=== PATIENT | male | born 1985 | race Caucasian/White ===

== ENCOUNTER 2016-09-12 19:09 | Emergency (ER) | payer OTHER ==
[2016-09-12 19:18] VITALS: BP 104/65; PULSE 98; TEMP 98.4; BMI 27.4
[2016-09-12] MEDS ORDERED: ONDANSETRON 4 MG/2 ML VIAL IVPB ONE (21:59)
--- NOTE | 2016-09-12 21:59 | PDOC ---
History of Present Illness - History of Present Illness Initial Comments: 09/12/16 23:28 Patient is a 31 year old male with no significant medical hx who is presenting to the ED with nausea, vomiting and diarrhea since today. The patient reports he is unable to keep anything down, including water, and has had seven episodes of vomiting today. The patient also endorses some cough and generalized joint pain. Patient notes both of his kids had vomiting and diarrhea last week. Denies any recent travel, abdominal pain, fevers, chills, chest pain, shortness of breath, or dysuria. Denies past abdominal surgeries. <Lorraine Flores - Last Filed: 09/12/16 23:28> <Yazmin Blanc - Last Filed: 09/13/16 01:11> - General Chief Complaint: Nausea/Vomiting Stated Complaint: VOMITING, DIZZINESS Time Seen by Provider: 09/12/16 21:22 Past History <Lorraine Flores - Last Filed: 09/12/16 23:28> - Past Medical History Kidney Stones: Yes - Immunization History Immunization Up to Date: Yes - Psycho/Social/Smoking Cessation Hx Anxiety: No Suicidal Ideation: No Smoking Status: No Smoking History: Never smoked Have you smoked in the past 12 months: No Number of Cigarettes Smoked Daily: 4 If you are a former smoker, when did you quit?: 2014 Information on smoking cessation initiated: No Hx Alcohol Use: No Drug/Substance Use Hx: No Substance Use Type: None <Yazmin Blanc - Last Filed: 09/13/16 01:11> - Past Medical History Allergies/Adverse Reactions: Allergies Allergy/AdvReac Type Severity Reaction Status Date / Time No Known Allergies Allergy Verified 09/12/16 19:18 Home Medications: Ambulatory Orders NK [No Known Home Medication] 09/12/16 Review of Systems - Review of Systems Comments:: 09/12/16 23:28 CONSTITUTIONAL: Absent: fever, chills, diaphoresis, generalized weakness, malaise, loss of appetite HEENT: Absent: rhinorrhea, nasal congestion, throat pain, throat swelling, difficulty swallowing, mouth swelling, ear pain, eye pain, visual changes CARDIOVASCULAR: Absent: chest pain, syncope, palpitations, irregular heart rate, lightheadedness , peripheral edema RESPIRATORY: Present: cough Absent: shortness of breath, dyspnea with exertion, orthopnea, wheezing, stridor , hemoptysis GASTROINTESTINAL: Present: nausea, vomiting, diarrhea Absent: abdominal pain, abdominal distension, constipation, melena, hematochezia GENITOURINARY: Absent: dysuria, frequency, urgency, hesitancy, hematuria, flank pain, genital pain MUSCULOSKELETAL: Present: arthralgia Absent: myalgia, joint swelling SKIN: Absent: rash, itching, pallor HEMATOLOGIC/IMMUNOLOGIC: Absent: easy bleeding, easy bruising, lymphadenopathy, frequent infections ENDOCRINE: Absent: unexplained weight gain, unexplained weight loss, heat intolerance, cold intolerance NEUROLOGIC: Absent: headache, focal weakness or paresthesia, dizziness, unsteady gait, seizure, mental status changes, bladder or bowel incontinence. PSYCHIATRIC: Absent: anxiety, depression, suicidal or homicidal ideation, hallucinations <Lorraine Flores - Last Filed: 09/12/16 23:28> *Physical Exam - Vital Signs Last Vital Signs Temp Pulse Resp BP Pulse Ox 98.4 F 98 H 18 104/65 98 09/12/16 19:15 09/12/16 19:15 09/12/16 19:15 09/12/16 19:15 09/12/16 19:15 - Physical Exam Comments: 09/12/16 23:29 GENERAL: Well developed, well nourished. Awake and alert. No acute distress. HEENT: Normocephalic, atraumatic. PERRLA, EOMI. No conjunctival pallor. Sclera are non- icteric. Dry mucous membranes. Oropharynx is clear. NECK: Supple. Full ROM. No JVD. Carotid pulses 2+ and symmetric, without bruits. No thyromegaly. No lymphadenopathy. CARDIOVASCULAR: Regular rate and rhythm. No murmurs, rubs, or gallops. Distal pulses are 2+ and symmetric. PULMONARY: No evidence of respiratory distress. Lungs clear to auscultation bilaterally. No wheezing, rales or rhonchi. ABDOMINAL: Soft. Non-tender. Non-distended. No rebound or guarding. No organomegaly. Normoactive bowel sounds. MUSCULOSKELETAL: Normal range of motion at all joints. No bony deformities or tenderness. No CVA tenderness. EXTREMITIES: No cyanosis. No clubbing. No edema. No calf tenderness. SKIN: Warm and dry. Normal capillary refill. No rashes. No jaundice. NEUROLOGICAL: Alert, awake, appropriate. Cranial nerves 2-12 intact. Normal speech. PSYCHIATRIC: Cooperative. Good eye contact. Appropriate mood and affect. <Lorraine Flores - Last Filed: 09/12/16 23:28> - Vital Signs Last Vital Signs Temp Pulse Resp BP Pulse Ox 98.4 F 98 H 18 104/65 98 09/12/16 19:15 09/12/16 19:15 09/12/16 19:15 09/12/16 19:15 09/12/16 19:15 <Yazmin Blanc - Last Filed: 09/13/16 01:11> ED Treatment Course - LABORATORY CBC & Chemistry Diagram: 09/12/16 22:30 09/12/16 22:30 - ADDITIONAL ORDERS Additional order review: 09/12/16 22:30 RBC 5.19 MCV 84.9 MCHC 33.1 RDW 14.2 MPV 8.8 Neutrophils % 91.6 H D Lymphocytes % 4.0 L D Monocytes % 4.0 Eosinophils % 0.1 D Basophils % 0.3 - Medications Given in the ED: ED Medications Discontinued Medications Generic Name Dose Route Start Last Admin Trade Name Freq PRN Reason Stop Dose Admin Sodium Chloride 1,000 mls @ 1,000 mls/hr 09/12/16 22:14 09/12/16 22:30 Normal Saline - IV 09/12/16 23:13 1,000 mls/hr ASDIR STA Administration Ondansetron HCl 4 mg 09/12/16 21:59 09/12/16 22:30 Zofran Injection IVPB 09/12/16 22:00 4 mg ONCE ONE Administration <Lorraine Flores - Last Filed: 09/12/16 23:28> - LABORATORY CBC & Chemistry Diagram: 09/12/16 22:30 09/12/16 22:30 <Yazmin Blanc - Last Filed: 09/13/16 01:11> Medical Decision Making - Medical Decision Making 09/13/16 01:06 31-year-old male presents with 1 day of nausea, vomiting and diarrhea this started when he woke up Sunday morning. He did have 2 sick contacts his children had similar symptoms last week. He denies any recent travel. He said he is vomited at least 7 times and can't seem to keep water down. The last time he had diarrhea was about 6 PM. No fever, no shortness of breath or chest pain. He did complain of some generalized headache and joint pain -he received IV fluids, antiemetics and feels much better. He does not have lower abdominal pain. He has no rebound or guarding on exam Discussed with him that if he does develop any right lower abdominal pain, he should return for imaging studies. It is expected that he feels better in 24 hours. He is to return for any worsening symptoms <Yazmin Blanc - Last Filed: 09/13/16 01:11> *DC/Admit/Observation/Transfer - Attestations Scribe Attestion: 09/12/16 23:30 Documentation prepared by Lorraine Flores, acting as medical massage therapist for Yazmin Blanc MD. <Lorraine Flores - Last Filed: 09/12/16 23:28> <Yazmin Blanc - Last Filed: 09/13/16 01:11> Diagnosis at time of Disposition: Vomiting Qualifiers: Vomiting type: unspecified Vomiting Intractability: non-intractable Nausea presence: with nausea Qualified Code(s): R11.2 - Nausea with vomiting, unspecified Diarrhea Qualifiers: Diarrhea type: unspecified type Qualified Code(s): R19.7 - Diarrhea, unspecified - Discharge Dispostion Disposition: HOME Condition at time of disposition: Stable - Referrals Referrals: STAFF,NOT ON [Primary Care Provider] - - Patient Instructions Printed Discharge Instructions: DI for Diarrhea and Traveler's Diarrhea -- Adult, DI for Vomiting -- Adult Additional Instructions: -Please rest -try to keep hydrated by drinking fluids -return if you develop abdominal pain
[2016-09-12] MEDS ORDERED: SODIUM CHLORIDE 1,000 ML IV STA (22:14)
[2016-09-12] MEDS ORDERED: ONDANSETRON 4 MG/2 ML VIAL ONE (22:20)
[2016-09-12 22:39] LABS: BASOPHIL 0.3 % (0-2.0); EOSINOPHIL 0.1 % (0-4.5); MCH 28.1 pg (25.7-33.7); MCHC 33.1 g/dl (32.0-35.9); MEAN CELL VOLUME 84.9 fl (80-96); MEAN PLT VOLUME 8.8 fl (7.5-11.1); NEUTROPHILS 91.6 % (42.8-82.8); PLATELET COUNT 216 K/MM3 (134-434); RDW 14.2 % (11.9-15.9); WHITE BLOOD COUNT 14.7 K/mm3 (4.0-10.0)
[2016-09-12 23:28] LABS: ALBUMIN 4.3 g/dl (3.4-5.0); ALK PHOS 94 U/L (45-117); ANION GAP 15 (8-16); BILIRUBIN,TOTAL 0.4 mg/dL (0.2-1.0); CALCIUM 9.4 mg/dL (8.5-10.1); CO2 23 mmol/L (21-32); COCKROFT - GAULT 114.44; CREATININE 0.9 mg/dL (0.7-1.3); GLUCOSE,RANDOM 82 mg/dL (74-106); SGOT/AST 21 U/L (15-37); SGPT/ALT 22 U/L (12-78); TOT PROT 7.8 g/dl (6.4-8.2)
[2016-09-12] MEDS ORDERED: METOCLOPRAMIDE HCL INJECTION 10 MG/2 ML VIAL IVPB ONE (23:29)
[2016-09-12] MEDS ORDERED: METOCLOPRAMIDE HCL INJECTION 10 MG/2 ML VIAL ONE (23:32)
[2016-09-13 00:55] LABS: URINE APPEARANCE CLEAR; URINE BILIRUBIN NEGATIVE (NEGATIVE); URINE BLOOD 1+ (NEGATIVE); URINE COLOR YELLOW; URINE GLUCOSE (UA) NEGATIVE (NEGATIVE); URINE KETONE 1+ (NEGATIVE); URINE LEUK ESTERASE NEGATIVE (NEGATIVE); URINE NITRITE NEGATIVE (NEGATIVE); URINE PROTEIN NEGATIVE (NEGATIVE); URINE UROBILINOGEN NEGATIVE E.U./dl (0.2-1.0)
[2016-09-13 01:40] LABS: URINE HYALINE CAST 2 /lpf; URINE MUCUS MANY; URINE RBC 9 /hpf (0-3); URINE WBC 4 /hpf (3-5)
== END 2016-09-13 01:20 | disposition home or self-care (01) ==
LOC: JER 19:09
PROC: 3E033GC Introduction of Other Therapeutic Substance into Peripheral Vein, Percutaneous Approach (ICD-10-PCS; principal; 2016-09-12)
PROC: 3E0337Z Introduction of Electrolytic and Water Balance Substance into Peripheral Vein, Percutaneous Approach (ICD-10-PCS; 2016-09-12)
DX: R11.2 Nausea with vomiting, unspecified (principal); R19.7 Diarrhea, unspecified; Z87.442 Personal history of urinary calculi
CPT/HCPCS: 36415; 80053; 81003; 81015; 83690; 85025; 96361; 96374; 96375; 99282-25

== ENCOUNTER 2017-05-01 15:48 | Emergency (ER) | payer OTHER ==
--- NOTE | 2017-05-01 16:00 | PDOC ---
Rapid Medical Evaluation Time Seen by Provider: 05/01/17 15:58 Medical Evaluation: Allergies Allergy/AdvReac Type Severity Reaction Status Date / Time No Known Allergies Allergy Verified 05/01/17 15:58 05/01/17 15:58 I have performed a brief in-person evaluation of this patient. The patient presents with a chief complaint of: N/V/D w/ mild epigastric pain. Denies pmhx Pertinent physical exam findings:Stable w/ minimal ttp to epigastrium I have ordered the following:cbc/chem/lipase The patient will proceed to the ED for further evaluation.
[2017-05-01 16:01] VITALS: BP 108/66; PULSE 91; TEMP 98.7; BMI 22.8
[2017-05-01 16:19] LABS: BASO % 0.7 % (0-2.0); EOS % 3.3 % (0-4.5); HEMATOCRIT 44.3 % (35.4-49); HEMOGLOBIN 15.2 GM/dL (11.7-16.9); LYMPH % 16.8 % (8-40); MCH 29.6 pg (25.7-33.7); MCHC 34.3 g/dl (32.0-35.9); MEAN CELL VOLUME 86.3 fl (80-96); MEAN PLT VOLUME 8.7 fl (7.5-11.1); NEUT % 72.2 % (42.8-82.8); PLATELET COUNT 190 K/MM3 (134-434); RBC 5.13 M/mm3 (4.00-5.60); RDW 13.1 % (11.9-15.9)
[2017-05-01 16:45] LABS: ALBUMIN 4.3 g/dl (3.4-5.0); ALK PHOS 81 U/L (45-117); ANION GAP 7 (8-16); BILIRUBIN,TOTAL 0.5 mg/dL (0.2-1.0); BLOOD UREA NITROGEN 10 mg/dL (7-18); CALCIUM 9.1 mg/dL (8.5-10.1); CHLORIDE 102 mmol/L (98-107); CO2 29 mmol/L (21-32); CREATININE 0.8 mg/dL (0.7-1.3); GLUCOSE,RANDOM 102 mg/dL (74-106); LIPASE 124 U/L (73-393); POTASSIUM 3.5 mmol/L (3.5-5.1); SGOT/AST 20 U/L (15-37); SGPT/ALT 25 U/L (12-78); SODIUM 138 mmol/L (136-145); TOT PROT 7.7 g/dl (6.4-8.2)
--- NOTE | 2017-05-01 17:19 | PDOC ---
History of Present Illness - General Chief Complaint: Vomiting/Diarrhea Stated Complaint: VOMITING/DIARRHEA Time Seen by Provider: 05/01/17 15:58 History Source: Patient Exam Limitations: No Limitations - History of Present Illness Travel History: No Initial Comments: 05/01/17 17:14 This is a 32-year-old man without significant past medical history of presents emergency Department 4 days of diarrhea. Patient states he is able tolerate liquids but becomes nauseous and vomits when he tries solid foods. He reports having pain in the epigastrium which worsens when he eats. He states his diarrhea is loose/watery and has a green/brown color to it. He denies fevers, chills, chest pain, shortness of breath, diaphoresis. Past History - Past Medical History Allergies/Adverse Reactions: Allergies Allergy/AdvReac Type Severity Reaction Status Date / Time No Known Allergies Allergy Verified 05/01/17 15:58 Home Medications: Ambulatory Orders Ondansetron [Zofran Odt -] 4 mg SL BID #14 od.tablet 05/01/17 COPD: No Kidney Stones: Yes Other medical history: cluster headache - Immunization History Immunization Up to Date: Yes - Suicide/Smoking/Psychosocial Hx Smoking Status: No Smoking History: Never smoked Have you smoked in the past 12 months: No Number of Cigarettes Smoked Daily: 4 If you are a former smoker, when did you quit?: 2014 Information on smoking cessation initiated: No Hx Alcohol Use: No Drug/Substance Use Hx: No Substance Use Type: None Review of Systems - Review of Systems Able to Perform ROS?: Yes Is the patient limited Turkmen proficient: No Constitutional: No: Symptoms Reported HEENTM: No: Symptoms Reported Cardiac (ROS): No: Symptoms Reported ABD/GI: Yes: See HPI : No: Symptoms Reported Musculoskeletal: No: Symptoms Reported Integumentary: No: Symptoms Reported Neurological: No: Symptoms reported Endocrine: No: Symptoms Reported Hematologic/Lymphatic: No: Symptoms Reported *Physical Exam - Vital Signs Last Vital Signs Temp Pulse Resp BP Pulse Ox 98.7 F 91 H 18 108/66 100 05/01/17 15:59 05/01/17 15:59 05/01/17 15:59 05/01/17 15:59 05/01/17 15:59 - Physical Exam General Appearance: Yes: Appropriately Dressed. No: Apparent Distress HEENT: positive: Normal ENT Inspection Neck: positive: Trachea midline, Supple Respiratory/Chest: positive: Lungs Clear, Normal Breath Sounds. negative: Respiratory Distress, Accessory Muscle Use Cardiovascular: positive: Regular Rhythm, Regular Rate Gastrointestinal/Abdominal: positive: Normal Bowel Sounds, Soft. negative: Tender Musculoskeletal: positive: Normal Inspection. negative: CVA Tenderness Extremity: positive: Normal Inspection Neurologic: positive: singing teacher II-XII NML intact, Fully Oriented, Alert, Normal Mood/ Affect, Normal Response, Motor Strength 09/01 ED Treatment Course - LABORATORY CBC & Chemistry Diagram: 05/01/17 16:06 05/01/17 16:06 - ADDITIONAL ORDERS Additional order review: Laboratory Results 05/01/17 16:06 Sodium 138 Potassium 3.5 Chloride 102 Carbon Dioxide 29 D Anion Gap 7 L BUN 10 Creatinine 0.8 Creat Clearance w eGFR > 60 Random Glucose 102 D Calcium 9.1 Total Bilirubin 0.5 D AST 20 ALT 25 Alkaline Phosphatase 81 Total Protein 7.7 Albumin 4.3 Lipase 124 05/01/17 16:06 RBC 5.13 MCV 86.3 MCHC 34.3 RDW 13.1 MPV 8.7 Neutrophils % 72.2 D Lymphocytes % 16.8 D Monocytes % 7.0 Eosinophils % 3.3 D Basophils % 0.7 Medical Decision Making - Medical Decision Making 05/01/17 17:15 A/P: This is a 32-year-old man without significant past medical history of presents emergency Department 4 days of diarrhea. Patient states he is able tolerate liquids but becomes nauseous and vomits when he tries solid foods. He reports having pain in the epigastrium which worsens when he eats. He states his diarrhea is loose/watery and has a green/brown color to it. He denies fevers, chills, chest pain, shortness of breath, diaphoresis. Abdomen is soft nontender nondistended. Normoactive bowel sounds. Lungs clear to auscultation bilaterally. S1 and S2 present. RRR. No murmur rub or gallop. Laboratory testing done at [facility] is benign. Patient is tolerating by mouth's at this time. Diagnosis: Viral gastroenteritis I will give the patient a prescription for Zofran ODT to help tolerate by mouth' s during the next couple days. Patient has no primary doctor so referral will be given. Patient is in agreement with plan strict return precautions were given. *DC/Admit/Observation/Transfer Diagnosis at time of Disposition: Gastroenteritis - Discharge Dispostion Disposition: HOME Condition at time of disposition: Stable Admit: No - Prescriptions Prescriptions: Ondansetron [Zofran Odt -] 4 mg SL BID #14 od.tablet - Referrals Referrals: David Frazier MD [Staff Physician] - - Patient Instructions Additional Instructions: Take Zofran as prescribed. This may help with her vomiting. Keep well-hydrated. Take Tylenol or Motrin for fever and/or pain. You've been given a referral for a primary doctor please make an appointment in 2 weeks for a complete checkup. Return to emergency department for inability to eat or drink anything, worsening diarrhea, dizziness, lightheadedness, chest pain, shortness of breath or any other concerns. Thank you very much for choosing us to provide your emergent healthcare needs. - Post Discharge Activity
== END 2017-05-01 17:25 | disposition home or self-care (01) ==
LOC: JERFT 15:48
DX: K52.9 Noninfective gastroenteritis and colitis, unspecified (principal)
CPT/HCPCS: 36415; 80053; 83690; 85025; 99281-25

== ENCOUNTER 2017-08-30 17:32 | Observation (INO) | payer OTHER ==
[2017-08-30 17:43] VITALS: BMI 21.0
[2017-08-30] MEDS ORDERED: ASPIRIN 81 MG CHEWABLE TABLETS PO ONE (17:46)
--- NOTE | 2017-08-30 17:46 | PDOC ---
Rapid Medical Evaluation Chief Complaint: Palpitations Time Seen by Provider: 08/30/17 17:46 Medical Evaluation: Allergies Allergy/AdvReac Type Severity Reaction Status Date / Time No Known Allergies Allergy Verified 08/30/17 17:39 Vital Signs Temp Pulse Resp BP Pulse Ox 98.1 F 150 H 18 111/78 100 08/30/17 17:41 08/30/17 17:41 08/30/17 17:41 08/30/17 17:41 08/30/17 17:41 08/30/17 17:46 08/30/17 17:40 Pt c/o: papitations since 1230pm. root canal under local anesthesia, no chest pain Pt on brief exam: tachy 150, bp wnl Pt ordered for: cardiac w/u Pt to proceed to the ED Discharge Disposition - Diagnosis Palpitations - Referrals - Patient Instructions - Post Discharge Activity
[2017-08-30] MEDS ORDERED: SODIUM CHLORIDE 1,000 ML IV STA (17:47)
--- NOTE | 2017-08-30 17:59 | PDOC ---
History of Present Illness - General Chief Complaint: Palpitations Stated Complaint: BLOOD PRESSURE PROBLEM Time Seen by Provider: 08/30/17 17:46 - History of Present Illness Initial Comments: 08/30/17 17:57 32 year old male with a PMH of cluster headache presents to the ED c/o palpitations. Patient states he was at the dentist earlier today around 12 p.m. when he started feeling acute onset of palpitations because he was nervous for his upcoming root canal. Note palpitations continued during root canal ( local anesthesia, unsure of medication) and prompted his visit to the ED. Denies associated chest pain, subjective dyspena, lightheadedness. No previous h/o palpitations. No family cardiac history including h/o early cardiac . Denies any prior stress testing. NKDA Surgical: Lithotripsy. Social: nicotine (3-4 cigarettes daily > 2 years), denies alcohol, denies recreational drugs PMD: Dr. Tasha Javier ([place]) As per EMR patient evaluated on multiple occasions in our ED over the last 3 years, no cardiac evaluation; most recent eval in 04/2017 at which time patient was diagnosed with viral gastroenteritis. Past History - Past Medical History Allergies/Adverse Reactions: Allergies Allergy/AdvReac Type Severity Reaction Status Date / Time No Known Allergies Allergy Verified 08/30/17 17:39 Home Medications: Ambulatory Orders Ondansetron [Zofran Odt -] 4 mg SL BID #14 od.tablet 05/01/17 COPD: No Kidney Stones: Yes - Immunization History Immunization Up to Date: Yes - Suicide/Smoking/Psychosocial Hx Smoking Status: No Smoking History: Never smoked Have you smoked in the past 12 months: No Number of Cigarettes Smoked Daily: 4 If you are a former smoker, when did you quit?: 2014 Information on smoking cessation initiated: No Hx Alcohol Use: No Drug/Substance Use Hx: No Substance Use Type: None Review of Systems - Review of Systems Constitutional: No: Chills, Fever HEENTM: No: Recent change in vision Respiratory: No: SOB with Exertion, SOB at Rest, Stridor, Wheezing Cardiac (ROS): Yes: Palpitations. No: Chest Pain, Edema, Lightheadedness, Syncope ABD/GI: No: Constipated, Diarrhea, Nausea, Vomiting : No: Burning, Dysuria Neurological: No: Numbness, Seizure, Tingling, Tremors Psychiatric: No: Anxiety, Depression All Other Systems: Reviewed and Negative *Physical Exam - Vital Signs Last Vital Signs Temp Pulse Resp BP Pulse Ox 98.1 F 150 H 18 111/78 100 08/30/17 17:41 08/30/17 17:41 08/30/17 17:41 08/30/17 17:41 08/30/17 17:41 - Physical Exam Comments: 08/30/17 19:20 HEAD: No signs of trauma EYES: PERRLA, EOMI, sclera anicteric, conjunctiva clear ENT: Auricles normal inspection, hearing grossly normal, nares patent, oropharynx clear without exudates. Moist mucosa NECK: Nontender, no stepoffs, Normal ROM, supple, no lymphadenopathy, JVD, or masses LUNGS: Breath sounds equal, clear to auscultation bilaterally. No wheezes, and no crackles HEART: Regular rate and rhythm, normal S1 and S2, no murmurs, rubs or gallops ABDOMEN: Soft, nontender, normoactive bowel sounds. No guarding, no rebound. No masses EXTREMITIES: Normal range of motion, no edema. No clubbing or cyanosis. No cords, erythema, or tenderness NEUROLOGICAL: Cranial nerves II through XII intact. 5/5 strength and sensation in all extremities, Normal speech, normal gait, normal cerebellar function SKIN: Warm, Dry, normal turgor, no rashes or lesions noted. ED Treatment Course - LABORATORY CBC & Chemistry Diagram: 08/30/17 17:50 08/30/17 17:50 Medical Decision Making - Medical Decision Making 08/30/17 18:01 32 year old male presents with acute onset of palpitations, started 5 hours prior to presentation. No associated chest pain, dyspnea. ECG in triage showed changes concerning possible for SVT (HR 138) vs. 2:1 Aflutter with buried P wave however repeat ECG showed NSR HR 93, normal intervals, no deviations, no MANDO/STD,TWI, good R wave progression V1- 4, c/w previous ECG dated 01/09/2012. Will obtain Troponin x1, CXR, likely disposition is admit for further cardiac evaluation including TAMMY. Reassess. 08/30/17 18:50 Troponin (-) x1, D-Dimer (-). Wet read of CXR shows no cardiomegaly, no effusion, no infiltrate/consolidation. Patient remains non-tachycardic however as initial ECG could be AFlutter vs SVT; paged [facility] for admission 08/30/17 19:01 Patient signed out to Dr. Boyd (Attending) - pending admission. Will continue to monitor while in ED. *DC/Admit/Observation/Transfer Diagnosis at time of Disposition: Palpitations - Referrals - Patient Instructions - Post Discharge Activity
[2017-08-30 18:10] LABS: BASO % 0.4 % (0-2.0); EOS % 2.3 % (0-4.5); HEMATOCRIT 43.9 % (35.4-49); LYMPH % 18.7 % (8-40); MCH 29.8 pg (25.7-33.7); MCHC 34.2 g/dl (32.0-35.9); MEAN CELL VOLUME 86.9 fl (80-96); MEAN PLT VOLUME 8.6 fl (7.5-11.1); MONO % 7.3 % (3.8-10.2); NEUT % 71.3 % (42.8-82.8); PLATELET COUNT 243 K/MM3 (134-434); RBC 5.05 M/mm3 (4.00-5.60); RDW 13.6 % (11.9-15.9); WHITE BLOOD COUNT 9.5 K/mm3 (4.0-10.0)
--- NOTE | 2017-08-30 18:16 | PDOC ---
Attending Attestation - HPI HPI: 08/30/17 18:45 The patient is a 32 year old male, with a significant past medical history of headaches, who presents to the emergency department complaining of palpitations onset today. He reports that he was at the dentist office getting a procedure done at 12:30pm today and received numbing medication. The palpitations began shortly after. He reports that he has had palpitations in the past when gets nervous but has not lasted more than a few minutes, unlike this episode which lasted roughly 4 hours. On presentation the patient's heart rate is normal. The patient denies chest pain, shortness of breath, headache or dizziness. Denies fever, chills, nausea, vomiting, diarrhea and constipation. Denies dysuria, frequency, urgency and hematuria. Allergies: None Past surgical history: None repoorted Social History: Quit tobacco use (2 weeks ago). No alcohol or drug use reported - Physicial Exam PE: 08/30/17 18:45 Constitutional: Awake, alert, oriented. No acute distress. Head: Normocephalic. Atraumatic Eyes: PERRL. EOMI. Conjunctivae are not pale. ENT: Mucous membranes are moist and intact. Posterior pharynx without exudates or erythema. Uvula midline. Neck: Supple. Full ROM. No lymphadenopathy. Cardiovascular: Regular rate. Regular rhythm. S1, S2 regular. Distal pulses are 2+ and symmetric. Pulmonary/Chest: No evidence of respiratory distress. Clear to auscultation bilaterally No wheezing, rales or rhonchi. Abdominal: Soft and non-distended. There is no tenderness. No rebound, guarding or rigidity. No organomegaly. No palpable masses. Good bowel sounds. Back: No CVA tenderness. Musculoskeletal: No edema. No cyanosis. No clubbing. Full range of motion in all extremities. Nocalf tenderness. Radial/pedal pulses are intact and 2+ bilaterally Skin: Skin is warm and dry. No petechiae. No purpura. Neurological: Alert and oriented to person, place, and time. Cranial nerves II -XII are grossly intact. Normal speech. Strength is grossly symmetric. No sensory deficits. Psychiatric: Good eye contact. Normal interaction, affect and behavior. <Barry Montiel - Last Filed: 08/30/17 18:45> - Resident Resident Name: Martha Mendiola - ED Attending Attestation I have performed the following: I have examined & evaluated the patient, The case was reviewed & discussed with the resident, I agree w/resident's findings & plan, Exceptions are as noted - Medical Decision Making 08/30/17 18:16 I, Dr. Cindy Boyd, DO, attest that this document has been prepared under my direction and personally reviewed by me in its entirety. I further attest, that it accurately reflects all work, treatment, procedures and medical decision -making performed by me. 08/30/17 20:13 a/p: 32yo male with palpitations today -no cp/sob -no pleuritic component -no PE risk factors -no recent drug use or etoh use -palpitations started before seeing the dentist -currently asymptomatic and in sinus rhythm -will obtain labs, dimer, trop, tsh, ekg, cxr -will monitor on tele -concern for poss 2:1 flutter on ekg -received asa 08/30/17 20:14 case discussed with NUSRAT who accepts pt to service consult placed to cards <Cindy Boyd - Last Filed: 08/30/17 20:14> Heart Score/ECG Review - ECG Intrepretation Comment:: 08/30/17 19:58 ekg rhythm strip in triage shows poss svt vs afib/flutter with rvr at 140s repeat ekg shows svt at 138, no acute st/t wave findings repeat ekg sinus at 86, nl axis, nl interval, no acute st/t wave findings <Cindy Boyd - Last Filed: 08/30/17 20:14>
[2017-08-30] MEDS ORDERED: ASPIRIN 81 MG CHEWABLE TABLETS ONE (18:31)
[2017-08-30 18:36] LABS: INR 0.98 (0.82-1.09)
[2017-08-30 18:37] LABS: ALBUMIN 4.5 g/dl (3.4-5.0); ANION GAP 6 (8-16); BILIRUBIN,TOTAL 0.3 mg/dL (0.2-1.0); BLOOD UREA NITROGEN 10 mg/dL (7-18); CALCIUM 9.5 mg/dL (8.5-10.1); CHLORIDE 109 mmol/L (98-107); CO2 28 mmol/L (21-32); CREATININE 0.9 mg/dL (0.7-1.3); GLUCOSE,RANDOM 86 mg/dL (74-106); MAGNESIUM 2.1 mg/dL (1.8-2.4); SGOT/AST 15 U/L (15-37); SGPT/ALT 17 U/L (12-78); SODIUM 143 mmol/L (136-145); TOT PROT 8.1 g/dl (6.4-8.2)
[2017-08-30 18:38] LABS: D-DIMER < 200 ng/ml (0-500)
[2017-08-30 18:40] LABS: ALK PHOS 89 U/L (45-117)
[2017-08-30] MEDS ORDERED: ACETAMINOPHEN 1000 MG/100 ML VIAL (NON FORMULARY) IVPB ONE (19:18)
[2017-08-30] MEDS ORDERED: ACETAMINOPHEN INJECTION 100 ML IVPB ONE (19:37)
[2017-08-30] MEDS ORDERED: ACETAMINOPHEN 325 MG TABLET (FP) PO PRN (19:51)
--- NOTE | 2017-08-30 20:10 | HP ---
CHIEF COMPLAINT: Palpitations PCP: Dr Tasha Javier ([place]) HISTORY OF PRESENT ILLNESS: 32yo otherwise healthy M who presented to the ER w/ palpitations. He had an appointment to get a root canal today, was nervous bc he watched videos of procedure online. As soon as he entered the dentist office, he felt anxiety w/ palpitations. Was nervous during the procedure, even with local anesthesia. His anxiety stopped in the ER spontaneously, and palpitations resolved. Denied CP, SOB, dizziness, blurry vision. Denies prior episode. Denies hx of anxiety. Denies caffeine intake. Takes Excedrine 3x/week for headaches, last taken 3 days ago In the ER, EKG showed SVT at 138bpm, which resolved spontaneously w/o meds. He was given a dose of aspirin. TSH, BMP, D-dimer, and Trops are neg. CXR wnl. Recent Travel: Denies PAST MEDICAL HISTORY: Headache PAST SURGICAL HISTORY: Lithotripsy Social History: Unemployed sendy. Smokin-4 cigarettes daily for >2 years Alcohol: Denies Drugs: Denies Family History: No family hx of cardiac abnormalities Allergies: No Known Allergies Allergy (Verified 08/30/17 17:39) HOME MEDICATIONS: Home Medications Medication Instructions Recorded Ondansetron [Zofran Odt -] 4 mg SL BID #14 od.tablet 05/01/17 REVIEW OF SYSTEMS CONSTITUTIONAL: Absent: fever, chills, diaphoresis, generalized weakness, malaise, loss of appetite, weight change HEENT: Absent: rhinorrhea, nasal congestion, throat pain, throat swelling, difficulty swallowing, mouth swelling, ear pain, eye pain, visual changes CARDIOVASCULAR: Absent: chest pain, syncope, palpitations, irregular heart rate , lightheadedness, peripheral edema RESPIRATORY: Absent: cough, shortness of breath, dyspnea with exertion, orthopnea, wheezing, stridor, hemoptysis GASTROINTESTINAL:Absent: abdominal pain, abdominal distension, nausea, vomiting , diarrhea, constipation, melena, hematochezia GENITOURINARY: Absent: dysuria, frequency, urgency, hesitancy, hematuria, flank pain, genital pain MUSCULOSKELETAL: Absent: myalgia, arthralgia, joint swelling, back pain, neck pain SKIN: Absent: rash, itching, pallor HEMATOLOGIC/IMMUNOLOGIC: Absent: easy bleeding, easy bruising, lymphadenopathy, frequent infections ENDOCRINE:Absent: unexplained weight gain, unexplained weight loss, heat intolerance, cold intolerance NEUROLOGIC: Absent: headache, focal weakness or paresthesias, dizziness, unsteady gait, seizure, mental status changes, bladder or bowel incontinence PSYCHIATRIC: Absent: anxiety, depression, suicidal or homicidal ideation, hallucinations. PHYSICAL EXAMINATION Vital Signs Period Temp Pulse Resp BP Sys/Edward Pulse Ox Last 24 Hr 98.1 F 97-150 16-18 106-111/78-86 100-100 GEN: AAOx3, NAD, Lying comfortalbe, smiling, not anxious HEENT: PERRLA, EOMi, no JVD CV: S1, S2, RRR, no mrg LUNG: CTABL ABD: Soft, NT, ND, normoactive BS MSKL: No edema, no erythema NEURO: CN 2-12 intact, no sensation or msk deficits Active Medications Acetaminophen (Tylenol -) 650 mg PO Q4H PRN PRN Reason: HEADACHE ASSESSMENT/PLAN: 32yo otherwise healthy M who presented to the ER w/ palpitations. # SVT - resolved spontaneously -- Likely secondary to anxiety about procedure. Observe on tele. Trend trops. Cardio consulted in ER. Echo to r/o structural abnormalities # Headaches -- Hold excedrin, will continue Tylenol prn # FEN/PPx -- No IVF, reg diet, SCD # Dispo -- Observe tele Case d/w Dr Villanueva & Dr Lloyd Pizarro MD - pGy1 [employer] Visit type - Emergency Visit Emergency Visit: Yes ED Registration Date: 08/30/17 Care time: The patient presented to the Emergency Department on the above date and was hospitalized for further evaluation of their emergent condition. - New Patient This patient is new to me today: Yes Date on this admission: 08/31/17 - Critical Care Critical Care patient: No Hospitalist Screening - Colonoscopy Questionnaire Colonoscopy Questionnaire: Colonoscopy Questionnaire - Patient: 50 - 75 years old and never had a screening colonoscopy: Unknown History of colon or rectal polyps, or CA: Unknown History of IBD, Crohn's disease or UC: Unknown History of abdominal radiation therapy as a child: Unknown - Relative: 1 with colon or rectal CA, or polyps at age 60 or younger: Unknown Colon or rectal CA diagnosed at age 45 or younger: Unknown Multiple relatives with colon or rectal CA: Unknown - Outcome: Screening Result: Negative Screen
[2017-08-30] MEDS ORDERED: SUMAtriptan SUCCINATE 25 MG TABLET PO ONE (22:14)
[2017-08-30] MEDS ORDERED: SUMAtriptan SUCCINATE 50 MG TABLET ONE (22:22)
--- NOTE | 2017-08-31 01:45 | PN ---
Teaching Attending Note Name of Resident: Penny Pizarro ATTENDING PHYSICIAN STATEMENT I saw and evaluated the patient. Chart, data reviewed. I reviewed the resident's note and discussed the case with the resident. I agree with the resident's findings and plan as documented. SUBJECTIVE: 32yo healthy man with no significant past medical history went for root canal on 08/30 and was feeling nervous and started feeling palpitations. This started roughly in the afternoon. Found to have SVT on EKG in ER in [facility] ER. SVT resolved , spontaneously and pt went into sinus rhythm on next EKG. He denied any prior incidences of arrythmias. Denied any chest pain or shortness of breath. OBJECTIVE: Last Vital Signs Temp Pulse Resp BP Pulse Ox 98.1 F 97 H 16 106/86 98 08/30/17 17:41 08/30/17 18:00 08/30/17 18:00 08/30/17 18:00 08/30/17 21:00 General -nad, thin, no distress HEENT- no sinus tenderness neck -supple cv-s1+s2+ RRR chest- cta b/l abdomen- soft, nontender, bs+ ext- no pedal edema ekg- svt repeat ekg- showed nsr ASSESSMENT AND PLAN: #32yo healthy man with new onset svt, hemodynamically stable. No medications given for cardioversion. Spontaneous resolution. Now in NSR. Electrolytes were wnl. Troponin was neg. -tele-observation -transthoracic echo -cardiology evaluation -heparin sc for dvt prophylaxis
[2017-08-31 06:08] LABS: HEMOGLOBIN 13.3 GM/dL (11.7-16.9); WHITE BLOOD COUNT 9.8 K/mm3 (4.0-10.0)
[2017-08-31 06:10] LABS: HEMATOCRIT 38.7 % (35.4-49); MCHC 34.4 g/dl (32.0-35.9); MEAN CELL VOLUME 87.4 fl (80-96); MEAN PLT VOLUME 8.9 fl (7.5-11.1); PLATELET COUNT 200 K/MM3 (134-434); RBC 4.43 M/mm3 (4.00-5.60); RDW 13.8 % (11.9-15.9)
[2017-08-31 06:30] LABS: ANION GAP 3 (8-16); BLOOD UREA NITROGEN 7 mg/dL (7-18); CALCIUM 8.9 mg/dL (8.5-10.1); CHLORIDE 111 mmol/L (98-107); CO2 29 mmol/L (21-32); CREATININE 0.8 mg/dL (0.7-1.3); GLUCOSE,RANDOM 91 mg/dL (74-106); POTASSIUM 4.1 mmol/L (3.5-5.1); SODIUM 143 mmol/L (136-145)
[2017-08-31 06:54] VITALS: TEMP 98
--- NOTE | 2017-08-31 09:36 | EKG ---
Test Reason : Blood Pressure : / mmHG Vent. Rate : 093 BPM Atrial Rate : 093 BPM P-R Int : 130 ms QRS Dur : 078 ms QT Int : 334 ms P-R-T Axes : 069 062 064 degrees QTc Int : 415 ms POOR DATA QUALITY, INTERPRETATION MAY BE ADVERSELY AFFECTED NORMAL SINUS RHYTHM NORMAL ECG WHEN COMPARED WITH ECG OF 09-JAN-2012 20:35, NO SIGNIFICANT CHANGE WAS FOUND Confirmed by RAUL MOTA MD ([id number]) on 08/31/2017 9:35:59 AM Referred By: Confirmed By:RAUL MOTA MD
--- NOTE | 2017-08-31 12:09 | CON.CARD ---
Cardiology Consult (text) - Consultation Consultation Note: cc: palps hpi: 32 m no sig pmhx here with palps. No hx hrt dz, no prior palps. Yesterday was anxious at dentist office about having root canal done and felt palps for several hours (heart racing) so came to er. In er ecg showed svt that converted on own to sr. Sxs resolved then. Never had cp, sob, dizzy, loc , pnd,orthopnea, le edema. Feels well now. No excess caffeine intake. pmh: per hpi psh: no surgery social: occ cigs fam: no premature cad, scd, cardiac dz ros: per hpi; no nvd, fever, cough, vision changes, gib, heamturia, dysruia meds: Ambulatory Orders Ondansetron [Zofran Odt -] 4 mg SL BID #14 od.tablet 05/01/17 pe: Vital Signs Period Temp Pulse Resp BP Sys/Edward Pulse Ox Last 24 Hr 98.0 F-98.1 F 55-150 16-18 106-112/72-86 98-100 nad no jvd rrr s1s2 no mrg cta bl nl eff aaox3 no le e/c/c abd nt nd pos bs no janudice diaphoresis pos dp pt no carotid bruits Laboratory Last Values WBC 9.8 K/mm3 (4.0-10.0) 08/31/17 05:45 RBC 4.43 M/mm3 (4.00-5.60) 08/31/17 05:45 Hgb 13.3 GM/dL (11.7-16.9) D 08/31/17 05:45 Hct 38.7 % (35.4-49) 08/31/17 05:45 MCV 87.4 fl (80-96) 08/31/17 05:45 MCH 30.0 pg (25.7-33.7) 08/31/17 05:45 MCHC 34.4 g/dl (32.0-35.9) 08/31/17 05:45 RDW 13.8 % (11.9-15.9) 08/31/17 05:45 Plt Count 200 K/MM3 (134-434) 08/31/17 05:45 MPV 8.9 fl (7.5-11.1) 08/31/17 05:45 Neutrophils % 71.3 % (42.8-82.8) 08/30/17 17:50 Lymphocytes % 18.7 % (8-40) 08/30/17 17:50 Monocytes % 7.3 % (3.8-10.2) 08/30/17 17:50 Eosinophils % 2.3 % (0-4.5) 08/30/17 17:50 Basophils % 0.4 % (0-2.0) 08/30/17 17:50 PT with INR 11.10 SEC (9.7-13.0) 08/30/17 17:50 INR 0.98 (0.82-1.09) 08/30/17 17:50 D-Dimer < 200 ng/ml (0-500) 08/30/17 17:50 Sodium 143 mmol/L (136-145) 08/31/17 05:45 Potassium 4.1 mmol/L (3.5-5.1) 08/31/17 05:45 Chloride 111 mmol/L (98-107) H 08/31/17 05:45 Carbon Dioxide 29 mmol/L (21-32) 08/31/17 05:45 Anion Gap 3 (8-16) L 08/31/17 05:45 BUN 7 mg/dL (7-18) D 08/31/17 05:45 Creatinine 0.8 mg/dL (0.7-1.3) 08/31/17 05:45 Creat Clearance w eGFR > 60 (>60) 08/30/17 17:50 Random Glucose 91 mg/dL (74-106) 08/31/17 05:45 Calcium 8.9 mg/dL (8.5-10.1) 08/31/17 05:45 Phosphorus 3.8 mg/dL (2.5-4.9) 08/31/17 09:53 Magnesium 2.1 mg/dL (1.8-2.4) 08/30/17 17:50 Total Bilirubin 0.3 mg/dL (0.2-1.0) D 08/30/17 17:50 AST 15 U/L (15-37) D 08/30/17 17:50 ALT 17 U/L (12-78) D 08/30/17 17:50 Alkaline Phosphatase 89 U/L (45-117) 08/30/17 17:50 Creatine Kinase 63 IU/L (39-308) 08/30/17 17:50 Troponin I < 0.02 ng/ml (0.00-0.05) 08/31/17 01:54 B-Natriuretic Peptide 71.29 pg/ml (5-125) 08/30/17 17:50 Total Protein 8.1 g/dl (6.4-8.2) 08/30/17 17:50 Albumin 4.5 g/dl (3.4-5.0) 08/30/17 17:50 TSH 1.74 uIU/ml (0.358-3.74) 08/30/17 17:50 ecg: svt 150s, no ischemic changes, nl qtc, repeat ecg shows nsr, wnl echo 08/2017: nl lv/rv, mild tr, nl rvsp cxr: clear lungs a/p: 32 m no sig pmhx here with palps. palps, svt: -in svt 150s initially, converted on own to sr -echo, ecg, labs, tsh, all unremarkable -no further inpt testing needed for svt. no meds needed at this time. -pt instructed to f/u with me for cardiology in a few weeks, consider holter, event monitor then -cardiac guillaume ok for dc
[2017-08-31 12:31] VITALS: BP 112/73; PULSE 60
--- NOTE | 2017-08-31 13:52 | PN ---
Teaching Attending Note Name of Resident: Jonathan Dobbs ATTENDING PHYSICIAN STATEMENT I saw and evaluated the patient. I reviewed the resident's note and discussed the case with the resident. I agree with the resident's findings and plan as documented. SUBJECTIVE: seen at 10 am . denied any palpitations or CP. has no fever or chills . denied any alcohol or drugs OBJECTIVE: NAD Cv: RRR, no MRG , no JVD lungs: CTAB Ext: no edema , no tremor ASSESSMENT AND PLAN: 32 y/o man with no significant PMH who presented with palpitations and was found to have SVT which converted to sinus spontaneously . 1- SVT: unclear trigger. nl TSH. no signs of infection . Echo with mild MR and TR. card input apreciated out pt monitor f/u with card if it recurs again then may be BB can be started. none now avoid excessive caffeine use and stress d/w pt dc home
--- NOTE | 2017-08-31 18:44 | DS ---
Physical Exam: SUBJECTIVE: Patient seen and examined at bedside. Patient denies chest pain, says that his palpitations have resolved. OBJECTIVE: Vital Signs Period Temp Pulse Resp BP Sys/Edward Pulse Ox Last 24 Hr 98.0 F-98.0 F 55-64 18-18 111-112/72-76 97-98 PHYSICAL EXAM GENERAL: The patient is awake, alert, and fully oriented, in no acute distress. HEAD: Normal with no signs of trauma. NECK: Trachea midline, full range of motion, supple. LUNGS: Breath sounds equal, clear to auscultation bilaterally, no wheezes, no crackles, no accessory muscle use. HEART: Regular rate and rhythm, S1, S2 without murmur, rub or gallop. ABDOMEN: Soft, nontender, nondistended, normoactive bowel sounds, no guarding, no rebound, no hepatosplenomegaly, no masses. EXTREMITIES: 2+ pulses, warm, well-perfused, no edema. NEUROLOGICAL: Cranial nerves II through X grossly intact. Normal speech, gait not observed. PSYCH: Normal mood, normal affect. SKIN: Warm, dry, normal turgor, no rashes or lesions noted. LABS Laboratory Results - last 24 hr 08/30/17 08/31/17 08/31/17 17:50 01:54 05:45 WBC 9.8 RBC 4.43 Hgb 13.3 D Hct 38.7 MCV 87.4 MCH 30.0 MCHC 34.4 RDW 13.8 Plt Count 200 MPV 8.9 Sodium Potassium Chloride Carbon Dioxide Anion Gap BUN Creatinine Random Glucose Calcium Phosphorus Troponin I < 0.02 TSH 1.74 08/31/17 08/31/17 05:45 09:53 WBC RBC Hgb Hct MCV MCH MCHC RDW Plt Count MPV Sodium 143 Potassium 4.1 Chloride 111 H Carbon Dioxide 29 Anion Gap 3 L BUN 7 D Creatinine 0.8 Random Glucose 91 Calcium 8.9 Phosphorus 3.8 Troponin I TSH HOSPITAL COURSE: Date of Admission:08/30/17 The patient is a 32 yo M w/ no PMH who presented to the ER c/o palptiations while undergoing a root canal. Per the patient, this was the first time he had experienced this. In the ED, the patient's initial EKG showed SVT @ 138 bpm. The patient was admitted for further workup. Cardiology was consulted. While waiting for a bed in the emergency department, the patient's symptoms spontaneously resolved without intervention. A repeat EKG at this time showed NSR @ 93. A CBC, BMP, TSH and troponin was negative. A CXR was unremarkable. An Echocardiogram was unremarkable. Cardiology assessed the patient and cleared him for discharge with close follow up. The patient was discharged home with instructions to follow up with a bridge instructor within one week of discharge home. He was also instructed to follow up with his primary care physician within one week of discharge home. Date of Discharge: 08/31/17 Minutes to complete discharge: 55 Discharge Summary Reason For Visit: PALPITATIONS Condition: Improved - Instructions Diet, Activity, Other Instructions: You were admitted for the workup of a fast heartbeat called supraventricular tachycardia . Your heart is now beating normally and your Echocardiogram ( ultrasound of your heart) is normal. You will need to follow up with your primary care physician within one week of discharge home for post-hospital evaluation. You should also follow up with a bridge instructor (heart doctor) within one week of discharge home as you may need some additional tests to look at your heart. Contact information has been provided for you, please call to make appointments. Please avoid drinking excessive amounts of caffeine. Also try to avoid excessive stress, as these two things may cause your heart to beat irregularly again. If you begin to experience chest pain, shortness of breath, worsening palpitations or if any of your symptoms get worse, please call your doctor or return to the emergency department. Referrals: Jarad Khalil MD [Staff Physician] - Tasha Javier MD [Primary Care Provider] - 1 Week Disposition: HOME This patient is new to me today: Yes Date on this admission: 09/01/17 Emergency Visit: Yes ED Registration Date: 08/30/17 Care time: The patient presented to the Emergency Department on the above date and was hospitalized for further evaluation of their emergent condition. Critical Care patient: No - Discharge Referral Referred to [facility] No
--- NOTE | 2017-09-03 12:39 | EKG ---
Test Reason : Blood Pressure : / mmHG Vent. Rate : 138 BPM Atrial Rate : 144 BPM P-R Int : 000 ms QRS Dur : 136 ms QT Int : 288 ms P-R-T Axes : 000 059 067 degrees QTc Int : 436 ms POSSIBLE JUNCTIONAL TACHYCARDIA INCOMPLETE RBBB ST ELEVATION, CONSIDER EARLY REPOLARIZATION, PERICARDITIS, OR INJURY ABNORMAL ECG WHEN COMPARED WITH ECG OF 09-JAN-2012 20:35, VENT. RATE HAS INCREASED BY 50 BPM CLINICAL CORRELATION IS RECOMMENDED Confirmed by ANURAG COREY MD ([id number]) on 09/03/2017 12:39:17 PM Referred By: Confirmed By:ANURAG COREY MD
== END 2017-08-31 14:15 | disposition home or self-care (01) ==
LOC: JER 17:32 → JERBED 19:45
PROVIDERS: ADMIT Internal Medicine; ATTEND Internal Medicine
PROC: 3E033NZ Introduction of Analgesics, Hypnotics, Sedatives into Peripheral Vein, Percutaneous Approach (ICD-10-PCS; principal; 2017-08-30)
PROC: 3E0337Z Introduction of Electrolytic and Water Balance Substance into Peripheral Vein, Percutaneous Approach (ICD-10-PCS; 2017-08-30)
DX: I47.1 Supraventricular tachycardia (principal)
CPT/HCPCS: 36415; 71045-TC-FY; 80048; 80053; 82550; 83735; 83880; 84100; 84443; 84484; 85025; 85027; 85379; 85610; 93005; 93010; 93306-TC; 96361; 96374; 99285-25; G0378; J0131; J7030